=== PATIENT | male | born 1980 | race Two or more races ===

== ENCOUNTER 2017-11-25 22:08 | Emergency (ER) | payer MEDICAID ==
[~2017-11-25] VITALS: Ht 185.4 cm; Wt 136.1 kg
[2017-11-25 23:00] VITALS: BP 117/78
== END 2017-11-26 07:32 | disposition left against medical advice (07) ==
LOC: ER 22:08
DX: S09.90XA Unspecified injury of head, initial encounter (principal); Z53.21 Procedure and treatment not carried out due to patient leaving prior to being seen by health care provider; X58.XXXA Exposure to other specified factors, initial encounter; Y93.89 Activity, other specified; Y99.8 Other external cause status; Y92.89 Other specified places as the place of occurrence of the external cause

== ENCOUNTER 2018-02-03 23:04 | Emergency (ER) | payer MEDICAID ==
[~2018-02-03] VITALS: Ht 185.4 cm; Wt 129.3 kg
[2018-02-03 23:50] LABS: Basophils # (auto) 0.1 uL; Basophils % (auto) 0.7 % (0.0-2.0); Eosinophils # (auto) 0.5 uL; Eosinophils % (auto) 4.5 % (0.0-7.0); Hematocrit 46.4 % (41.0-53.0); Hemoglobin 15.7 g/dL (13.5-17.5); Lymphocytes # (auto) 2.6 uL; Lymphocytes % (auto) 26.5 % (10.0-50.0); Mean Corpuscular Hemoglobin 33.6 pg (28.0-32.0); Mean Corpuscular Hgb Conc. 33.9 g/dL (32.0-36.0); Mean Corpuscular Volume 99.1 fL (80.0-100.0); Monocytes # (auto) 0.4 uL; Monocytes % (auto) 3.7 % (0.0-12.0); Neutrophils # (auto) 6.4 uL; Neutrophils % (auto) 64.6 % (37.0-80.0); Nucleated Red Blood Cells % 0.1 %; Platelet Count (auto) 307 10^3/uL (140-450); Red Blood Cells 4.68 10^6/uL (4.5-5.90); Red Cell Distribution Width 13.3 % (11.8-14.3)
[2018-02-04 00:05] LABS: BUN/Creatinine Ratio 15.6; Calcium 8.8 mg/dL (8.5-10.1); Potassium 3.9 mmol/L (3.5-5.1)
[2018-02-04 00:06] LABS: Urine Bacteria FEW /hpf (None Seen); Urine Blood Negative /uL (Negative); Urine Mucus FEW (None Seen); Urine Specific Gravity 1.029 (1.001-1.035); Urine WBC 2 /hpf (0 - 3)
[2018-02-04 00:08] LABS: Bilirubin, Total 0.3 mg/dL (0.2-1.0)
[2018-02-04 00:22] VITALS: BP 138/72
== END 2018-02-04 01:44 | disposition home or self-care (01) ==
LOC: ER 23:05
DX: R10.9 Unspecified abdominal pain (principal); B86 Scabies; F17.210 Nicotine dependence, cigarettes, uncomplicated
CPT/HCPCS: 36415; 74176; 80053; 81001; 83690; 85025